=== PATIENT | male | born 1990 | race Caucasian/White ===

== ENCOUNTER 2017-12-23 19:09 | Emergency (ER) | payer BC ==
[2017-12-23 19:33] VITALS: BP 121/80; PULSE 70; RESP 16; TEMP 98.5; O2SAT 99
--- NOTE | 2017-12-23 20:32 | C.PDOC ---
History Of Present Illness 27 y/o male presents to ED with c/o subjective fever for 4 days associated with nasal congestion and sore throat since yesterday. Patient admits to sick contacts roommates and reports taking Tylenol with no improvement. Patient denies cough, nausea, vomiting, abdominal pain, diarrhea or any other complaints at this time.pt sts nasal mucus sometimes blood streaked when he blows his nose. Time Seen by Provider: 12/23/17 19:37 Chief Complaint (Nursing): ENT Problem History Per: Patient History/Exam Limitations: no limitations Onset/Duration Of Symptoms: Days Current Symptoms Are (Timing): Still Present Past Medical History Reviewed: Historical Data, Nursing Documentation, Vital Signs Vital Signs: Last Vital Signs Temp 98.5 F 12/23/17 19:29 Pulse 70 12/23/17 19:29 Resp 16 12/23/17 19:29 BP 121/80 12/23/17 19:29 Pulse Ox 99 12/23/17 19:29 - Medical History PMH: No Chronic Diseases Surgical History: No Surg Hx Family History: States: No Known Family Hx - Social History Hx Alcohol Use: No Hx Substance Use: No - Immunization History Hx Tetanus Toxoid Vaccination: No Hx Influenza Vaccination: No Hx Pneumococcal Vaccination: No Review Of Systems Constitutional: Positive for: Fever. Negative for: Chills ENT: Positive for: Nose Congestion, Throat Pain Cardiovascular: Negative for: Chest Pain Respiratory: Negative for: Cough, Shortness of Breath Gastrointestinal: Negative for: Nausea, Vomiting Skin: Negative for: Rash Physical Exam - Physical Exam Appears: Non-toxic, No Acute Distress Skin: Warm, Dry, No Rash Head: Atraumatic, Normacephalic Eye(s): bilateral: Normal Inspection Oral Mucosa: Moist Throat: Erythema, No Exudate, No Drooling Neck: Supple Cardiovascular: Rhythm Regular Respiratory: Normal Breath Sounds, No Rales, No Rhonchi, No Wheezing Gastrointestinal/Abdominal: Soft, No Tenderness, No Guarding, No Rebound Neurological/Psych: Oriented x3, Normal Speech, Normal Cognition ED Course And Treatment O2 Sat by Pulse Oximetry: 99 (RA) Pulse Ox Interpretation: Normal Medical Decision Making Medical Decision Making: pt with nasal congestion, subjective fever and sore throat. rapid strep negative. d/c with ibuprofen and sudafed. f/u pmd Disposition Counseled Patient/Family Regarding: Studies Performed, Diagnosis, Need For Followup - Disposition Referrals: [facility] [Outside] Disposition: HOME/ ROUTINE Disposition Time: 21:06 Condition: GOOD Additional Instructions: Please gargle with warm salty water several times a day for throat pain. Take paracetamol or ibuprofen for pain or fever if needed per directions on package. Take Sudafed (decongestant) to help drain nasal secretions per directions on package Drink increased fluids, Use nasal saline. Follow up in medical clinic or with a physician of your choice in the next few days. Instructions: Viral Upper Respiratory Infection, Adult (DC) Forms: What's Trending (Ukrainian), General Discharge Instructions - Clinical Impression Clinical Impression: Upper respiratory infection - PA / PROCESSING SUPERVISOR / Resident Statement MD/DO has reviewed & agrees with the documentation as recorded. - Scribe Statement The provider has reviewed the documentation as recorded by the Scribdorina Meza All medical record entries made by the Scribe were at my direction and personally dictated by me. I have reviewed the chart and agree that the record accurately reflects my personal performance of the history, physical exam, medical decision making, and the department course for this patient. I have also personally directed, reviewed, and agree with the discharge instructions and disposition.
== END 2017-12-23 21:14 | disposition home or self-care (01) ==
LOC: C.ER 19:09
DX: J06.9 Acute upper respiratory infection, unspecified (principal)